=== PATIENT | female | born 1960 | race Caucasian/White ===

== ENCOUNTER → 2019-04-21 11:33 | Outpatient (CLI) | payer BC, SELFPAY ==
[2019-04-21 12:35] LABS: Alanine Aminotransferase 68 IU/L (9-52); Albumin 4.6 g/dL (3.5-5.0); Albumin Globulin Ratio 1.5 (1.0-2.8); Alkaline Phosphatase 90 U/L (38-126); Aspartate Aminotransferase 45 IU/L (14-36); BUN Creatinine Ratio 26.7 (6-22); Bilirubin Total 0.7 mg/dL (0.2-1.3); Blood Urea Nitrogen 16 mg/dL (7-17); Calcium 9.6 mg/dL (8.4-10.2); Carbon Dioxide 26 mmol/L (22-32); Chloride 101 mmol/L (98-107); Estimated Glomerular Filt Rate > 60.0 mL/min (>60); Glucose 104 mg/dL (70-100); HEMOLYSIS < 15 (0-50); Potassium 4.3 mmol/L (3.4-5.1); Sodium 139 mmol/L (137-145); Total Protein 7.6 g/dL (6.3-8.2)
[2019-04-21 12:50] LABS: Vitamin D 25 Hydroxy (D3) 31.5 ng/mL (30.0-100.0)
== END ==
PROVIDERS: Visit Provider Student in an Organized Health Care Education/Training Program
DX: E78.5 Hyperlipidemia, unspecified (principal); I10 Essential (primary) hypertension; K21.9 Gastro-esophageal reflux disease without esophagitis; E55.9 Vitamin D deficiency, unspecified; Z78.9 Other specified health status; Z79.899 Other long term (current) drug therapy
CPT/HCPCS: 36415; 80053; 82306

== ENCOUNTER 2019-05-06 14:48 | Outpatient (RCR) | payer BC, SELFPAY ==
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
--- NOTE | 2019-05-06 16:41 | PT.OPPOC ---
Current Diagnoses Benign paroxysmal vertigo, unspecified ear (05/06/19) Dizziness and giddiness (05/06/19) Provider Visit Care Team Role Provider Type Kyle Hernandez MD Attending Provider Physician Primary Care Provider Specialty: Internal Medicine Address: [address] [place] [address], [id number] Email: Plan Of Care PT-OP-T Assessment and Plan Start: 05/06/19 16:25 Freq: Status: Active Protocol: Document 05/06/19 15:15 DCW (Rec: 05/06/19 16:39 DCW [id number]) Physical Therapy Assessment Rehab Potential Rehabilitation Potential Excellent Evaluation Complexity Number of Personal Factors/Comorbidities 0 Number of Body Systems Impaired 1-2 Clinical Presentation at Evaluation Unstable Impairments Impairments Balance Vestibular Goals Two Impairment Pt scores 22% disability on Dizziness Handicap Inventory Custodial Goal (LTG) Pt to score <6% on DHI LTG Duration 06/17/19 One Impairment Pt has symptoms rolling in bed or getting her hair done Clinic Lead Goal (LTG) Pt to report no symptoms of position-dependent dizziness when rolling in bed LTG Duration 06/17/19 Assessment Summary Assessment During both left and right Gerardo -Hallpike tests, pt complained of vertigo and demonstrated up-beating, torsional nystagmus lasting approximately 5 seconds, consistent with diagnosis of bilateral posterior canal BPPV , canalithiasis-type, although right was substantially more severe than left. Pt was first treated with a right-sided Kenneth maneuver. Pt complained of symptoms in the first and third position, which is normally indicative of a successful treatment. Further right-sided positional testing was negative. Her left side was then retested, and again demonstrated mild up-beating torsional nystagmus. Pt was then treated with a left-sided Kenneth maneuver. Pt was educated on BPPV, expectations for treatment, possible recurrence (BPPV has a ~50% recurrence rate in the five years following treatment), and post-Kenneth restrictions. Typically, pt would be instructed to return in ~1 week for a follow-up appointment, and intermittently afterward as indicated for treatment of BPPV, however pt reports she lives most of the time in [facility], and is only in [place] every ~6 weeks, so she was instructed to call for a follow-up appointment within the next two months if her symptoms persist. Physical Therapy Plan Frequency and Duration Frequency of Treatment Every Other Week Duration of Treatment 8 weeks Plan of Care Start Date 05/06/19 Plan of Care End Date 07/01/19 Therapeutic Interventions Therapeutic Interventions Balance Training Canalithic Repositioning Vestibular Rehabilitation Next Visit Focus/Plan Next Note Type Treatment Note Next Visit Plan Further positional testing, CRM as indicated Plan of Care Dates Plan of Care Start Date 05/06/19 Plan of Care End Date 07/01/19 Please Sign and Return: I have reviewed this Plan of Care and certify that the skilled therapy services above are required to meet the patient?s needs. Physician Signature Date Printed Name and Credentials Clinical Instructor Signature Printed Name and Credentials
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
== END 2019-08-14 13:50 ==
LOC: PHYS 14:48
PROVIDERS: PCP Student in an Organized Health Care Education/Training Program; Visit Provider Student in an Organized Health Care Education/Training Program
DX: H81.10 Benign paroxysmal vertigo, unspecified ear (principal)
CPT/HCPCS: 95992; 97161

== ENCOUNTER → 2019-06-15 12:14 | Outpatient (CLI) | payer BC, SELFPAY ==
--- NOTE | 2019-06-15 | DI.CT.S_ITS ---
PROCEDURE: CT ABDOMEN PELVIS WO CON INDICATIONS: LEFT LOWER QUADRANT PAIN TECHNIQUE: Noncontrast 5 mm thick sections acquired from the diaphragms to the symphysis. 5 mm coronal and sagittal reformats were then performed. For radiation dose reduction, the following was used: automated exposure control, adjustment of mA and/or kV according to patient size. COMPARISON: None. FINDINGS: Image quality: Excellent. ABDOMEN: Lung bases: Lung bases are clear. Heart size is normal. Solid organs: Liver is enlarged, and demonstrates diffusely decreased density, indicating fatty infiltration. Gallbladder is within normal limits. Pancreas is normal in contours. Spleen is normal in size. No adrenal nodules. Kidneys are normal in size, without hydronephrosis. There is a nonobstructing 3 mm calculus within the superior pole right kidney. There is a nonobstructing 2 mm cortical calcification within the right interpolar kidney. No left nephrolithiasis. Peritoneum and bowel: Unenhanced bowel loops demonstrate normal wall thickness and caliber. At the antimesenteric margin of the proximal sigmoid colon within the left hemipelvis anteriorly, there is a 24 mm diameter region of fat density with internal fat stranding. No free fluid or air. Normal appendix. Nodes and vessels: No retroperitoneal or mesenteric adenopathy by size criteria. Aorta and inferior vena cava are normal in caliber. Miscellaneous: No ventral hernias. PELVIS: Genitourinary: Bladder wall thickness is normal. Miscellaneous: No inguinal hernias or adenopathy. Bones: No suspicious bony lesions. No vertebral body compression fractures. IMPRESSION: 1. Epiploic appendagitis involving the proximal sigmoid colon. 2. Nonobstructing right renal calcifications. 3. Normal appendix. 4. Hepatic steatosis. Dictated by: Byron Garcias M.D. on 06/15/2019 at 17:17 Approved by: Byron Garcias M.D. on 06/15/2019 at 17:21
== END ==
PROVIDERS: PCP Student in an Organized Health Care Education/Training Program; Visit Provider Physician Assistant
DX: R10.32 Left lower quadrant pain (principal); N20.0 Calculus of kidney; K57.30 Diverticulosis of large intestine without perforation or abscess without bleeding; K76.0 Fatty (change of) liver, not elsewhere classified; K63.89 Other specified diseases of intestine
CPT/HCPCS: 74176; Q9967

== ENCOUNTER → 2020-05-26 13:10 | Outpatient (CLI) | payer BC, SELFPAY ==
[2020-05-26 15:43] LABS: Alanine Aminotransferase 33 IU/L (<35); Albumin 4.7 g/dL (3.5-5.0); Albumin Globulin Ratio 1.5 (1.0-2.8); Alkaline Phosphatase 78 U/L (38-126); Aspartate Aminotransferase 29 IU/L (14-36); BUN Creatinine Ratio 25.4 (6-22); Bilirubin Total 0.9 mg/dL (0.2-1.3); Blood Urea Nitrogen 17 mg/dL (7-17); Calcium 10.1 mg/dL (8.4-10.2); Carbon Dioxide 29 mmol/L (22-32); Chloride 100 mmol/L (98-107); Estimated Glomerular Filt Rate > 60.0 mL/min (>60); Globulin 3.1 g/dL (1.7-4.1); Glucose 92 mg/dL (80-110); HEMOLYSIS < 15 (0-50); Potassium 4.4 mmol/L (3.4-5.1); Sodium 137 mmol/L (137-145); Total Protein 7.8 g/dL (6.3-8.2)
== END ==
PROVIDERS: PCP Student in an Organized Health Care Education/Training Program; Referring Provider Student in an Organized Health Care Education/Training Program; Visit Provider Student in an Organized Health Care Education/Training Program
DX: E03.9 Hypothyroidism, unspecified (principal); I10 Essential (primary) hypertension; R79.89 Other specified abnormal findings of blood chemistry
CPT/HCPCS: 36415; 80053; 84443

== ENCOUNTER → 2021-07-31 16:04 | Outpatient (CLI) | payer BC, SELFPAY ==
[2021-07-31 17:22] LABS: BUN Creatinine Ratio 17.2 (6-22); Blood Urea Nitrogen 11 mg/dL (7-17); Calcium 9.5 mg/dL (8.4-10.2); Carbon Dioxide 31 mmol/L (22-32); Chloride 100 mmol/L (98-107); Estimated Glomerular Filt Rate > 60.0 mL/min (>60); Glucose 106 mg/dL (80-110); HEMOLYSIS < 15 (0-50); Potassium 3.9 mmol/L (3.4-5.1); Sodium 139 mmol/L (137-145)
[2021-07-31 17:54] LABS: TSH w/ Reflex to FT4 1.46 uIU/mL (0.47-4.68)
== END ==
PROVIDERS: PCP Student in an Organized Health Care Education/Training Program; Referring Provider Student in an Organized Health Care Education/Training Program; Visit Provider Student in an Organized Health Care Education/Training Program
DX: E03.9 Hypothyroidism, unspecified (principal); I10 Essential (primary) hypertension
CPT/HCPCS: 36415; 80048; 84443

== ENCOUNTER → 2022-09-10 14:00 | Outpatient (CLI) | payer BC, SELFPAY ==
[2022-09-11 01:38] LABS: Hep C Virus Ab w/Reflex Quant NEGATIVE s/c (NEGATIVE)
[2022-09-11 02:39] LABS: BUN Creatinine Ratio 20.3 (6-22); Blood Urea Nitrogen 14 mg/dL (7-17); Calcium 9.6 mg/dL (8.4-10.2); Carbon Dioxide 26 mmol/L (22-32); Chloride 98 mmol/L (98-107); Cholesterol 213 mg/dL (140-199); Estimated Glomerular Filt Rate > 60 mL/min (>60); Glucose 54 mg/dL (80-110); HDL Cholesterol 55 mg/dL (40-60); HEMOLYSIS < 15 (0-50); LDL Cholesterol Calculated 118 mg/dL (<100); Potassium 4.6 mmol/L (3.4-5.1); Sodium 137 mmol/L (137-145); Triglycerides 198 mg/dL (35-150)
== END ==
PROVIDERS: PCP Student in an Organized Health Care Education/Training Program; Referring Provider Student in an Organized Health Care Education/Training Program; Visit Provider Student in an Organized Health Care Education/Training Program
DX: E78.5 Hyperlipidemia, unspecified (principal); I10 Essential (primary) hypertension; Z11.59 Encounter for screening for other viral diseases
CPT/HCPCS: 36415; 80048; 80061; 86803

== ENCOUNTER → 2022-11-28 14:44 | Outpatient (CLI) | payer BC, SELFPAY ==
--- NOTE | 2022-11-28 14:46 | DI.RAD.S_ITS ---
PROCEDURE: XR SHOULDER RT MIN 2V INDICATIONS: Shoulder crepitus after overexertion TECHNIQUE: 3 views of the shoulder were acquired. COMPARISON: None. FINDINGS: Bones: No fractures or dislocations. Mild acromioclavicular joint and glenohumeral joint osteoarthritic changes are seen with joint space narrowing and subchondral sclerosis. No suspicious bony lesions. Visualized ribs appear intact. Soft tissues: No suspicious soft tissue calcifications. IMPRESSION: Mild right shoulder joint osteoarthritis. No fracture or dislocation. No gross soft tissue abnormalities. Dictated by: Brando Fraire M.D. on 11/28/2022 at 18:03 Approved by: Brando Fraire M.D. on 11/28/2022 at 18:04
== END ==
PROVIDERS: PCP Student in an Organized Health Care Education/Training Program; Referring Provider Student in an Organized Health Care Education/Training Program; Visit Provider Student in an Organized Health Care Education/Training Program
DX: M24.811 Other specific joint derangements of right shoulder, not elsewhere classified (principal); M25.511 Pain in right shoulder; M19.011 Primary osteoarthritis, right shoulder
CPT/HCPCS: 73030

== ENCOUNTER → 2022-12-24 15:08 | Outpatient (CLI) | payer BC, SELFPAY ==
--- NOTE | 2022-12-24 15:10 | DI.US.S_ITS ---
PROCEDURE: US THYROID INDICATIONS: LEFT SUPRACLAVICULAR MASS TECHNIQUE: Real-time scanning was performed of the thyroid gland, with image documentation. COMPARISON: None. FINDINGS: Right: Thyroid lobe measures 4.5 x 1.5 x 1.5 cm, and is heterogeneous in echotexture. 5 mm right thyroid nodule. Left: Thyroid lobe measures 4.2 x 1.4 x 1.2 cm, and is heterogeneous in echotexture. 5 mm colloid cyst. Isthmus: 3.8 mm thick. The palpable left supraclavicular mass corresponds to a normal appearing and sized 3 mm lymph node. IMPRESSION: 1. Diffusely heterogeneous thyroid with a small left colloid cyst and a 5 mm right thyroid nodule. Given the small size, no additional follow-up is warranted. 2. Small normal lymph node corresponding to the palpable abnormality. ACR TI-RADS definitions and recommendations: TI-RADS 1 (benign): 0 points. FNA not needed. TI-RADS 2 (not suspicious): 2 points. FNA not needed. TI-RADS 3 (mildly suspicious): 3 points. * FNA if 2.5 cm or larger, follow up if 1.5 cm or larger (at 1, 3, and 5 years). TI-RADS 4 (moderately suspicious): 4-6 points. * FNA if 1.5 cm or larger, follow up if 1 cm or larger (at 1, 2, 3, and 5 years). TI-RADS 5 (highly suspicious): 7 points or more. * FNA if 1 cm or larger, follow up if 0.5 cm or larger (every year for 5 years). Dictated by: Tyrese Moon [facility] Interpreted: Ric Bentley MD on 12/24/2022 at 15:46 Transcribed by: AMBER on 12/24/2022 at 15:48 Approved by: Torres Bentley M.D. on 12/24/2022 at 16:51
== END ==
PROVIDERS: PCP Student in an Organized Health Care Education/Training Program; Referring Provider Registered Nurse Diabetes Educator; Visit Provider Registered Nurse Diabetes Educator
DX: E04.1 Nontoxic single thyroid nodule (principal); Q04.6 Congenital cerebral cysts; R59.0 Localized enlarged lymph nodes
CPT/HCPCS: 76536

== ENCOUNTER → 2022-12-26 10:38 | Outpatient (CLI) | payer BC, SELFPAY ==
[2022-12-26 13:06] LABS: TSH w/ Reflex to FT4 1.46 uIU/mL (0.47-4.68)
== END ==
PROVIDERS: PCP Student in an Organized Health Care Education/Training Program; Referring Provider Student in an Organized Health Care Education/Training Program; Visit Provider Student in an Organized Health Care Education/Training Program
DX: E03.9 Hypothyroidism, unspecified (principal)
CPT/HCPCS: 36415; 84443